=== PATIENT | male | born 1975 | race Caucasian/White ===

== ENCOUNTER 2019-05-12 13:13 | Emergency (ER) | payer OTHER, BC ==
[2019-05-12 13:53] VITALS: BP 135/95
[2019-05-12] MEDS ORDERED: OXYCODONE-ACETAMINOPHEN 5-325 MG TABLET PO ONE (14:35)
--- NOTE | 2019-05-12 14:40 | ER Document Report ---
HPI - HPI Patient complains to provider of: right lower leg pain Time Seen by Provider: 05/12/19 14:30 Onset: This morning Onset/Duration: Sudden, Persistent Quality of pain: Achy, Other Severity: Severe Pain Level: 5 Context: Patient presents to the emergency department with complaints of right lower leg pain. Patient reports he was exercising doing sprints with his girlfriend when he felt a tear ripped on the back of his right leg. Reports excruciating pain now. Denies history of Achilles injury. Reports he can barely walk he limps drags his foot behind him. No other complaints such as fever vomiting diarrhea. Associated Symptoms: None Exacerbated by: Movement Relieved by: Denies Similar symptoms previously: No Recently seen / treated by doctor: No Past Medical History - General Information source: Patient - Social History Smoking Status: Unknown if Ever Smoked Cigarette use (# per day): No Frequency of alcohol use: None Drug Abuse: None Occupation: disabled- teacher Family History: None Patient has suicidal ideation: No Patient has homicidal ideation: No - Medical History Medical History: Negative Past Surgical History: Reports: Hx Orthopedic Surgery Vertical Provider Document - CONSTITUTIONAL Agree With Documented VS: Yes Exam Limitations: No Limitations General Appearance: WD/WN, Mild Distress - INFECTION CONTROL TRAVEL OUTSIDE OF THE [place] IN LAST 30 DAYS: No - HEENT HEENT: Atraumatic, Normocephalic - NECK Neck: Supple - RESPIRATORY Respiratory: No Respiratory Distress - CARDIOVASCULAR Cardiovascular: Regular Rate - MUSCULOSKELETAL/EXTREMETIES Musculoskeletal/Extremeties: Tender - right lower leg posterior achilles area ttp, c/o pain with flex /extension of foot, no warmth/erythema, no swelling good pedal pulse - NEURO Level of Consciousness: Awake, Alert, Appropriate Motor/Sensory: No Motor Deficit - DERM Integumentary: Warm, Dry Adult Front & Back Diagram: 1 - Patient reports pain with movement Course - Re-evaluation Re-evalutation: 05/12/19 18:[address] Alfonso called and advised MRI for further evaluation. Reports no Achilles tear but muscle tear. Patient was advised. He has been given Zofran for nausea and due to the Percocet making him nauseated. He also had some crackers. He reports he is comfortable. Patient had MRI is now waiting for results. Denies pain at this time. 05/12/19 19:32 MRI report obtained. I contacted Dr. Cárdenas with results. He advised Paul wrap crutches and follow-up with Ortho. Does not think patient will need surgery. Patient instructed on tearing of the myotendinous junction gastrocnemius muscle. He was given a copy of the CT and MRI report. He was instructed on the importance of follow-up with orthopedics. He declined narcotics for pain reports it does not like the way it made him feel would rather take Motrin. Paul wrap crutches provided. He verbalized understanding to all instructions. Dictation of this chart was performed using voice recognition software; therefore, there may be some unintended grammatical errors. - Vital Signs Vital signs: Temp Pulse Resp BP Pulse Ox 98.1 F 93 18 135/95 H 96 05/12/19 13:53 05/12/19 13:53 05/12/19 13:53 05/12/19 13:53 05/12/19 13:53 - Diagnostic Test Radiology reviewed: Image reviewed, Reports reviewed - EXAM DESCRIPTION: MRI RT LOWER EXTREMITY WITHOUT COMPLETED DATE/TIME: 05/12/2019 5:42 pm REASON FOR STUDY: eval gastrocnemius muscle COMPARISON: None. TECHNIQUE: Right upper calf images acquired and stored on PACS. Multiplanar images include fat sensitive sequences as T1, water sensitive sequences as FST2 or STIR, cartilage sensitive sequences as FSPD, and gradient echo sequences. LIMITATIONS: None. FINDINGS: SOFT TISSUES: There is partial tearing of the middle 3rd of the myotendinous junction - inferior aspect of the medial head of the gastrocnemius muscle near the soleus junction. Small amount of posterior -medial fluid- adjacent hemorrhage. OTHER: No other significant finding. IMPRESSION: There is partial tearing of the middle 3rd of the myotendinous junction - inferior aspect of the medial head of the gastrocnemius muscle near the soleus junction. Small amount of posterior -medial fluid- adjacent hemorrhage. TECHNICAL DOCUMENTATION: JOB ID: [id number] [place]-72 2010 [employer]- All Rights Reserved EXAM DESCRIPTION: U/S EXTREMITY NONVASCULAR COMP COMPLETED DATE/TIME: 05/12/2019 4:03 pm REASON FOR STUDY: achilles injury eval right LL COMPARISON: None. TECHNIQUE: Static and real time mobley scale ultrasound Doppler spectral analysis, and color Doppler acquired in of the right and left lower leg, with particular attention to the left Achilles tendon. Ultrasound performed by both myself as well as the technologist. LIMITATIONS: None. FINDINGS: Patient has focal pain and bulge along the lower lateral calf left side. Ultrasound of this area demonstrates a contour bulge along the fascia along the lateral head gastrocnemius/soleus muscle worrisome for a fascia tear and protruding muscle. Question small intramuscular tear at the level of the fascia defect without large intramuscular hematoma. Sonography of the left Achilles tendon was performed from the calcaneus up through the muscu lotendinous junction. There is minimal calcification of the distal most attachment Achilles tendon medially. Remainder of the Achilles tendon and musculotendinous junction is normal on the left. No retrocalcaneal bursa fluid. Comparison ultrasound of the right Achilles tendon from the calcaneus to the musculotendinous junction is unremarkable. Findings discussed with Becca MANCUSO in the emergency room at the time of scanning IMPRESSION: No sonographic evidence of left-sided Achilles tendon tear. Comparison ultrasound right Achilles tendon is unremarkable. Focal bulging left lower lateral calf, likely related to a small tear in the fascia along the left lateral head gastrocnemius muscle. Question small intramuscular tear at the level of the fascia defect without large muscle hematoma. TECHNICAL DOCUMENTATION: JOB ID: [id number] [employer]- All Rights Reserved Procedures - Immobilization Right calf Pre-Proc Neuro Vasc Exam: Normal Immobilizer type: Paul wrap Performed by: PCT Post-Proc Neuro Vasc Exam: Unchanged from pre-exam Alignment checked and good: Yes Discharge - Discharge Clinical Impression: Muscle tear Injury of right lower leg Qualifiers: Encounter type: initial encounter Qualified Code(s): S89.91XA - Unspecified injury of right lower leg, initial encounter Condition: Stable Disposition: HOME, SELF-CARE Instructions: Paul Wrap ([facility]), Use of Crutches ([facility]), Ibuprofen (General) ([facility]) Additional Instructions: *You have been evaluated for right lower extremity muscle tear *Maintain the Paul wrap and use your crutches *Rest/Ice/Elevate *[facility], follow up with orthopedics tomorrow-call for an appointment *Take Motrin as indicated *Return to ED for worsening condition, changes, needs Referrals: [facility] [Primary [facility] Provider] - Follow up tomorrow
[2019-05-12] MEDS ORDERED: ONDANSETRON 4 MG TAB.RAPDIS PO ONE (16:32)
--- NOTE | 2019-05-12 16:40 | RADIOLOGY REPORT (SQ) ---
EXAM DESCRIPTION: U/S EXTREMITY NONVASCULAR COMP COMPLETED DATE/TIME: 05/12/2019 4:03 pm REASON FOR STUDY: achilles injury eval right LL COMPARISON: None. TECHNIQUE: Static and real time mobley scale ultrasound Doppler spectral analysis, and color Doppler a cquired in of the right and left lower leg, with particular attention to the left Achilles tendon. U ltrasound performed by both myself as well as the technologist. LIMITATIONS: None. FINDINGS: Patient has focal pain and bulge along the lower lateral calf left side. Ultrasound of th is area demonstrates a contour bulge along the fascia along the lateral head gastrocnemius/soleus mus bobby worrisome for a fascia tear and protruding muscle. Question small intramuscular tear at the leve l of the fascia defect without large intramuscular hematoma. Sonography of the left Achilles tendon was performed from the calcaneus up through the musculotendino us junction. There is minimal calcification of the distal most attachment Achilles tendon medially. Remainder of the Achilles tendon and musculotendinous junction is normal on the left. No retrocalca neville bursa fluid. Comparison ultrasound of the right Achilles tendon from the calcaneus to the musculotendinous junctio n is unremarkable. Findings discussed with Becca MANCUSO in the emergency room at the time of scanning IMPRESSION: No sonographic evidence of left-sided Achilles tendon tear. Comparison ultrasound right Achilles tendon is unremarkable. Focal bulging left lower lateral calf, likely related to a small tear in the fascia along the left la teral head gastrocnemius muscle. Question small intramuscular tear at the level of the fascia defect without large muscle hematoma. TECHNICAL DOCUMENTATION: JOB ID: [id number] [employer]- All Rights Reserved Reading location - IP/workstation name: [email or web address]
--- NOTE | 2019-05-12 18:15 | RADIOLOGY REPORT (SQ) ---
EXAM DESCRIPTION: MRI RT LOWER EXTREMITY WITHOUT COMPLETED DATE/TIME: 05/12/2019 5:42 pm REASON FOR STUDY: eval gastrocnemius muscle COMPARISON: None. TECHNIQUE: Right upper calf images acquired and stored on PACS. Multiplanar images include fat sens itive sequences as T1, water sensitive sequences as FST2 or STIR, cartilage sensitive sequences as FS PD, and gradient echo sequences. LIMITATIONS: None. FINDINGS: SOFT TISSUES: There is partial tearing of the middle 3rd of the myotendinous junction - in ferior aspect of the medial head of the gastrocnemius muscle near the soleus junction. Small amount of posterior -medial fluid- adjacent hemorrhage. OTHER: No other significant finding. IMPRESSION: There is partial tearing of the middle 3rd of the myotendinous junction - inferior aspec t of the medial head of the gastrocnemius muscle near the soleus junction. Small amount of posterior -medial fluid- adjacent hemorrhage. TECHNICAL DOCUMENTATION: JOB ID: [id number] [place]-72 2010 [employer]- All Rights Reserved Reading location - IP/workstation name: [email or web address]
== END 2019-05-12 19:43 | disposition home or self-care (01) ==
LOC: ER 13:13
DX: T14.8XXA Other injury of unspecified body region, initial encounter (principal); S89.91XA Unspecified injury of right lower leg, initial encounter; X58.XXXA Exposure to other specified factors, initial encounter; M79.661 Pain in right lower leg; R11.0 Nausea
CPT/HCPCS: 99283; 73718; 76881; S0119